=== PATIENT | female | born 1995 | race Caucasian/White ===

== ENCOUNTER 2024-07-29 12:29 | Emergency (ER) | payer OTHER, SELFPAY ==
[2024-07-29 12:32] VITALS: BP 127/89
--- NOTE | 2024-07-29 13:08 | ED.GENMED ---
History of Present Illness
General
Chief Complaint: DVT/Possible Blood Clot
Time Seen by Provider: 07/29/24 12:42
History of Present Illness
History of Present Illness:
Patient is a 29-year-old woman presenting to the emergency department with left leg swelling. Patient states that she has had multiple long car rides and noticed some swelling behind her knee that has been spreading down the upper part of her calf.
No redness, no swelling. No history of blood clots. She is on OCP. She did not hear a pop. No traumatic injuries. No fevers chills. No redness.
Phy Exam
Physical Exam
Physical Exam:
GENERAL: in no acute distress
HEENT: normocephalic, extraocular movements intact, moist oral mucosa
NECK: normal inspection
RESPIRATORY: no respiratory distress, clear to auscultation bilaterally
CARDIOVASCULAR: regular rate and rhythm
EXTREMITIES: Left lower extremity with mild swelling behind the left knee and the proximal part of the calf, no redness warmth. Full range of motion. Normal cap refill, neurovascularly intact, 5 out of 5 strength
NEUROLOGIC: awake and alert, moves all extremities
SKIN: warm
Course
Orders/Labs/Results
Orders:
Orders
07/29/24 12:32
Periph Venous Lwr Ext Left US [US Periph Venous LOWER Ext LT] Urgent
Comment:
Reason For Exam: posterior L knee pain and swelling
Vital Signs
Initial and Last Documented VS:
Initial Vital Signs
Temp
98.4 F
07/29/24 12:30
Last Documented Vital Signs
Temp Pulse Resp BP Pulse Ox
98.4 F 78 16 127/89 99
07/29/24 12:30 07/29/24 12:32 07/29/24 12:32 07/29/24 12:32 07/29/24 12:32
MDM/Problems Addressed
Differential Diagnosis Includes:
Patient is a 29-year-old woman presenting to the emergency department with left lower extremity swelling most notably behind the knee. Vitals are unremarkable exam does show mild swelling. Will rule out DVT. Could be musculoskeletal injury versus
Borja's cyst. History exam not consistent with ligamentous injury. No redness swelling to the knee itself to suggest septic arthritis. Will obtain DVT study.
*Critical Care Note
Total Time (30-74mins, 75-104mins- exclusive of procedures): Not Applicable
Update Note
Update Note:
DVT study negative. I did offer patient Jayjay wrap however she states that she has at home. Discharge at this time. Patient will follow-up with orthopedic/primary care doctor for MRI if symptoms do not improve. Strict return precautions given.
ED Attending Note
-
Portions of this chart may have been created with voice recognition software.� Occasional wrong word or��sound alike� substitutions may have occurred due to the inherent limitations of voice recognition software.
Discharge Plan
Departure
Patient Disposition: Home (Routine Discharge)
Date of Disposition: 07/29/24
Time of Disposition: 14:27
Patient with high blood pressure during this ER visit?: No
Discharge Problem:
Leg swelling
Instructions: How to Use an Elastic Bandage
Referrals:
NONE,* [Family Provider] -
Interventions
Interventions:
*Risk Screen - Suicide Last Done: 07/29/24 12:33
Discharge Date and Time
Print Language: [id number]
[2024-07-29 14:39] VITALS: BP 127/82
== END 2024-07-29 14:41 | disposition home or self-care (01) ==
LOC: EMR 12:29
PROVIDERS: EMERGENCY PHYSICIAN Student in an Organized Health Care Education/Training Program
DX: R22.42 Localized swelling, mass and lump, left lower limb (principal); Z79.3 Long term (current) use of hormonal contraceptives
CPT/HCPCS: 99284; 93971